=== PATIENT | female | born 1955 | race Caucasian/White ===

== ENCOUNTER 2020-06-03 16:19 | Observation (INO) | payer OTHER ==
--- NOTE | 2020-06-03 18:17 | ED ---
General Adult HPI <Homer Poole - Last Filed: 06/03/20 18:17> - General Source: patient, RN notes reviewed Mode of arrival: ambulatory Limitations: no limitations (11) - History of Present Illness -: days(s) Location: chest Radiation: non-radiation Consistency: constant Improves with: none Worsens with: movement (exertion) Associated Symptoms: malaise, shortness of breath, weakness, other (leg swelling, right > left) Treatments Prior to Arrival: none <Abdiel Marcos - Last Filed: 06/03/20 22:42> - General Stated complaint: SOB - History of Present Illness Initial comments: 64-year-old female presents to the emergency department with a chief complaint of shortness of breath. She just a positive for covid-19 05/21/20 and she ana nues to have shortness of breath. Reports exertional dyspnea. She did report some fevers or chills over a week ago which has since resolved. She does have history of A. fib that is controlled with medication but does not take blood thinners. States she is currently in A. fib (Homer Poole) - Related Data Home Medications Medication Instructions Recorded Confirmed Cholecalciferol (Vitamin D3) 125 mcg PO DAILY 06/03/20 06/03/20 [Vitamin D3 (5000 Iu)] Sotalol [Betapace] 80 mg PO BID 06/03/20 06/03/20 rOPINIRole HCL [Requip] 1 mg PO HS 06/03/20 06/03/20 Allergies Allergy/AdvReac Type Severity Reaction Status Date / Time No Known Allergies Allergy Verified 06/03/20 21:07 Review of Systems ROS Other: All systems not noted in ROS Statement are negative. <Homer Poole - Last Filed: 06/03/20 18:17> ROS Other: All systems not noted in ROS Statement are negative. <Abdiel Marcos - Last Filed: 06/03/20 22:42> ROS Statement: Those systems with pertinent positive or pertinent negative responses have been documented in the HPI. General Exam General appearance: alert, in no apparent distress Respiratory exam: Present: normal lung sounds bilaterally. Absent: respiratory distress, wheezes, rales, rhonchi, stridor Cardiovascular Exam: Present: regular rate, normal rhythm, normal heart sounds <VirgilioHomer - Last Filed: 06/03/20 18:17> General appearance: alert, in no apparent distress Head exam: Present: normocephalic, normal inspection ENT exam: Present: normal exam, mucous membranes moist Neck exam: Present: normal inspection, full ROM. Absent: tenderness, meningismus, lymphadenopathy, thyromegaly Cardiovascular Exam: Present: normal rhythm (irregular) GI/Abdominal exam: Present: soft, normal bowel sounds. Absent: distended, tenderness, guarding, rebound, rigid Extremities exam: Present: full ROM, normal capillary refill, pedal edema (bl leg swelling right > left, pt states usually has leg swelling with afib but right is greater for past 4 days), other (pedal pulses present b/l). Absent: tenderness, joint swelling, calf tenderness Neurological exam: Present: alert, oriented X3 Psychiatric exam: Present: normal affect, normal mood Skin exam: Present: warm, dry, intact, normal color. Absent: rash <Abdiel Marcos - Last Filed: 06/03/20 22:42> Course Vital Signs 06/03/20 06/03/20 18:12 22:39 Temperature 98.9 F 98.1 F Pulse Rate 80 70 Respiratory 20 18 Rate Blood Pressure 148/82 150/92 O2 Sat by Pulse 95 94 L Oximetry Medical Decision Making - Lab Data Result diagrams: 06/03/20 18:58 06/03/20 18:58 <Abdiel Marcos - Last Filed: 06/03/20 22:42> - Medical Decision Making Patient does not meet criteria from monoclonal antibodies, started 14 days ago, chest x-ray shows bilateral diffuse infiltrates more prominent in the left lower lobe. White count 4.9, d-dimer elevated at 1.80, troponin 0.012. Bilateral lower extremity edema, right Greater than left, negative Homans sign, pedal pulses present bilaterally. Patient has atrial fibrillation is not taking any anticoagulants at home. CT a shows bilateral pulmonary embolisms, acute right PE greater than the left, diffuse patchy course obesities consistent with over pneumonia. Ultrasound negative for DVT. Case discussed with Dr. Colindres, patient will be admitted. (Abdiel Marcos) - Lab Data Lab Results 06/03/20 06/03/20 06/03/20 Range/Units 18:58 18:58 18:58 WBC 4.9 (3.8-10.6) k/uL RBC 4.41 (3.80-5.40) m/uL Hgb 14.1 (11.4-16.0) gm/dL Hct 40.0 (34.0-46.0) % MCV 90.8 (80.0-100.0) fL MCH 31.9 (25.0-35.0) pg MCHC 35.1 (31.0-37.0) g/dL RDW 12.5 (11.5-15.5) % Plt Count 242 (150-450) k/uL MPV 7.4 Neutrophils % 72 % Lymphocytes % 16 % Monocytes % 8 % Eosinophils % 2 % Basophils % 1 % Neutrophils # 3.5 (1.3-7.7) k/uL Lymphocytes # 0.8 L (1.0-4.8) k/uL Monocytes # 0.4 (0-1.0) k/uL Eosinophils # 0.1 (0-0.7) k/uL Basophils # 0.1 (0-0.2) k/uL PT 10.0 (9.0-12.0) sec INR 0.9 (<1.2) APTT 23.9 (22.0-30.0) sec D-Dimer 1.80 H (<0.60) mg/L FEU Sodium 132 L (137-145) mmol/L Potassium 3.5 (3.5-5.1) mmol/L Chloride 92 L (98-107) mmol/L Carbon Dioxide 31 H (22-30) mmol/L Anion Gap 9 mmol/L BUN 9 (7-17) mg/dL Creatinine 0.71 (0.52-1.04) mg/dL Est GFR (CKD-EPI)AfAm >90 (>60 ml/min/1.73 sqM) Est GFR (CKD-EPI)NonAf >90 (>60 ml/min/1.73 sqM) Glucose 114 H (74-99) mg/dL Calcium 10.1 (8.4-10.2) mg/dL Total Bilirubin 0.9 (0.2-1.3) mg/dL AST 36 (14-36) U/L ALT 30 (4-34) U/L Alkaline Phosphatase 85 (38-126) U/L Troponin I (0.000-0.034) ng/mL Total Protein 6.5 (6.3-8.2) g/dL Albumin 3.7 (3.5-5.0) g/dL 06/03/20 Range/Units 18:58 WBC (3.8-10.6) k/uL RBC (3.80-5.40) m/uL Hgb (11.4-16.0) gm/dL Hct (34.0-46.0) % MCV (80.0-100.0) fL MCH (25.0-35.0) pg MCHC (31.0-37.0) g/dL RDW (11.5-15.5) % Plt Count (150-450) k/uL MPV Neutrophils % % Lymphocytes % % Monocytes % % Eosinophils % % Basophils % % Neutrophils # (1.3-7.7) k/uL Lymphocytes # (1.0-4.8) k/uL Monocytes # (0-1.0) k/uL Eosinophils # (0-0.7) k/uL Basophils # (0-0.2) k/uL PT (9.0-12.0) sec INR (<1.2) APTT (22.0-30.0) sec D-Dimer (<0.60) mg/L FEU Sodium (137-145) mmol/L Potassium (3.5-5.1) mmol/L Chloride (98-107) mmol/L Carbon Dioxide (22-30) mmol/L Anion Gap mmol/L BUN (7-17) mg/dL Creatinine (0.52-1.04) mg/dL Est GFR (CKD-EPI)AfAm (>60 ml/min/1.73 sqM) Est GFR (CKD-EPI)NonAf (>60 ml/min/1.73 sqM) Glucose (74-99) mg/dL Calcium (8.4-10.2) mg/dL Total Bilirubin (0.2-1.3) mg/dL AST (14-36) U/L ALT (4-34) U/L Alkaline Phosphatase (38-126) U/L Troponin I <0.012 (0.000-0.034) ng/mL Total Protein (6.3-8.2) g/dL Albumin (3.5-5.0) g/dL Disposition <Homer Poole - Last Filed: 06/03/20 18:17> Is patient prescribed a controlled substance at d/c from ED?: No Decision Date: 06/03/20 Decision Time: 22:30 <Abdiel Marcos - Last Filed: 06/03/20 22:42> Clinical Impression: Pulmonary embolism, COVID-19 Disposition: ADMITTED IP TO THIS [facility] Condition: Fair Referrals: Nonstaff,Physician [REFERRING] - 1-2 days
--- NOTE | 2020-06-03 18:44 | XR ---
EXAMINATION TYPE: XR chest 2V DATE OF EXAM: 06/03/2020 COMPARISON: NONE HISTORY: Shortness of breath and cough. TECHNIQUE: Frontal and lateral views of the chest are obtained. FINDINGS: There is diffuse patchy opacity in the right lung and additional moderate opacities in the knee to lower left lung. There is trace left pleural effusion. No pneumothorax seen. The cardiac si lhouette size is enlarged. CABG noted. The osseous structures are intact. IMPRESSION: Bilateral infiltrates.
[2020-06-03 19:11] LABS: Basophils # (A) 0.1 k/uL (0-0.2); Basophils % (A) 1 %; Eosinophils # (A) 0.1 k/uL (0-0.7); Eosinophils % (A) 2 %; HGB 14.1 gm/dL (11.4-16.0); Lymphocytes # (A) 0.8 k/uL (1.0-4.8); Lymphocytes % (A) 16 %; MCH 31.9 pg (25.0-35.0); MCHC 35.1 g/dL (31.0-37.0); MCV 90.8 fL (80.0-100.0); Mean Platelet Volume 7.4; Monocytes # (A) 0.4 k/uL (0-1.0); Monocytes % (A) 8 %; Neutrophils # (A) 3.5 k/uL (1.3-7.7); Neutrophils % (A) 72 %; Platelet Count 242 k/uL (150-450); RBC 4.41 m/uL (3.80-5.40); RDW 12.5 % (11.5-15.5); WBC 4.9 k/uL (3.8-10.6)
[2020-06-03 19:25] LABS: INR 0.9 (<1.2); Partial Thromboplastin Time 23.9 sec (22.0-30.0)
[2020-06-03 19:29] LABS: D-Dimer 1.8 mg/L FEU (<0.60)
[2020-06-03 19:30] LABS: ALT 30 U/L (4-34); AST 36 U/L (14-36); African American GFR (CKD) >90 (>60 ml/min/1.73 sqM); Albumin 3.7 g/dL (3.5-5.0); Alkaline Phosphatase 85 U/L (38-126); Anion Gap 9 mmol/L; Blood Urea Nitrogen 9 mg/dL (7-17); Calcium 10.1 mg/dL (8.4-10.2); Carbon Dioxide 31 mmol/L (22-30); Chloride 92 mmol/L (98-107); Glucose 114 mg/dL (74-99); Non-African American GFR(CKD) >90 (>60 ml/min/1.73 sqM); Potassium 3.5 mmol/L (3.5-5.1); Sodium 132 mmol/L (137-145); Total Bilirubin 0.9 mg/dL (0.2-1.3); Total Protein 6.5 g/dL (6.3-8.2)
--- NOTE | 2020-06-03 21:56 | CT ---
EXAMINATION TYPE: CT angio chest DATE OF EXAM: 06/03/2020 9:24 PM COMPARISON: Same day radiographs. HISTORY: Elevated d-dimer and shortness of breath. CT DLP: 351.5 mGycm Automated exposure control for dose reduction was used. CONTRAST: CTA scan of the thorax is performed with IV Contrast, patient injected with 100ml mL of Isovue 370, p ulmonary embolism protocol. MIP images are created and reviewed. FINDINGS: LUNGS: There is diffuse moderate to marked patchy ground glass opacities in the right lung. Additiona l less pronounced mild to moderate patchy groundglass opacities in the lingula and left lower lobe an d minimal involvement of the left upper lobe. No pleural effusion or pneumothorax. MEDIASTINUM: There is satisfactory enhancement of the pulmonary artery and its branches. There are mu ltiple filling defects in the right upper lobe pulmonary artery segmental branches. There are less pr onounced few filling defects in the left lower lobe pulmonary artery subsegmental branches. The bilat eral main pulmonary arteries are enlarged measuring up to 3.7 cm on the right and 3.3 cm on the left. There are scattered mildly enlarged mediastinal and hilar lymph nodes, may the reactive. Cardiomegal y without pericardial effusion is seen. OTHER: No additional significant abnormality is seen. IMPRESSION: ACUTE RIGHT GREATER THAN LEFT PE INVOLVING THE SEGMENTAL AND SUBSEGMENTAL BRANCHES ABOVE. RIGHT GREATER THAN LEFT DIFFUSE PATCHY COARSE OPACITIES, CONSISTENT WITH HISTORY OF COVID PNEUMONIA. INCIDENTAL ENLARGED PULMONARY ARTERIES, CAN BE SEEN WITH PULMONARY HYPERTENSION. Findings were reported to caring physician by me at time of dictation.
[2020-06-03] MEDS ORDERED: HEPARIN SODIUM 1,000 UN/ML (10ML VL) IV ONE (22:05)
[2020-06-03] MEDS ORDERED: ASPIRIN 81 MG PO STA (22:05)
[2020-06-03] MEDS ORDERED: MORPHINE SULFATE 4 MG/ML SYRINGE IV PRN (22:05)
[2020-06-03] MEDS ORDERED: HEPARIN SOD,PORK IN 0.45% NACL 25,000 UNIT in 0.45% NACL 1 250ML.BAG IV SCH (22:15)
--- NOTE | 2020-06-03 22:32 | US ---
EXAMINATION TYPE: US venous doppler duplex LE RT DATE OF EXAM: 06/03/2020 10:17 PM COMPARISON: NONE CLINICAL HISTORY: pain. Swelling x 1 week. No hx of DVT. Patient does not take blood thinners. SIDE PERFORMED: Right TECHNIQUE: The lower extremity deep venous system is examined utilizing real time linear array sonog cl with graded compression, doppler sonography and color-flow sonography. VESSELS IMAGED: Common Femoral Vein Deep Femoral Vein Greater Saphenous Vein * Femoral Vein Popliteal Vein Small Saphenous Vein * Proximal Calf Veins (* superficial vessels) Right Leg: No evidence of DVT in veins imaged at this time from prox calf veins to CFV/GSV. IMPRESSION: No sign of deep vein thrombosis in the right leg.
--- NOTE | 2020-06-04 02:23 | P.HPIM ---
History of Present Illness H&P Date: 06/03/20 Chief Complaint: shortness of breath 64-year-old female with A. fib not on blood thinners, hypertension Patient comes in due to persistent shortness of breath. She claims that she had positive contact with confirmed Covid patient during mass event at the [employer] which was limited in attendance that was around late in April she was confirmed diagnosed with Covid on May 21 initially she had symptoms of fevers chills body aches and some shortness of breath however her oxygen was never low for which she never went to the hospital her daughter Taking care of her and [facility] on her daily. Patient started feeling better no more fevers no more chills no more body aches however her shortness of breath has persisted, Patient decided to come into the hospital today due to persistent shortness of breath which is getting even more difficult to breathe with slight activity denies any chest pain she has also noticed some right leg swelling however she claims that her leg gets swollen due to her A. fib. She denies any recent traveling or hospitalization and she denies any recent traumas to her legs denies any history of blood clots denies any history of cancer. However he she has been less active since the diagnosis of Covid due to shortness of breath She notified EMS today upon arrival her oxygen was within normal limits however she decided to come to the hospital for evaluation In the ED she was found to have elevated d-dimer, positive for Covid CT angiogram of the chest confirmed PE and a background of patchy infiltrative disease Venous duplex ultrasound of the right lower leg showed no evidence of acute DVT Review of Systems Pertinent positives as noted in HPI. All other systems were reviewed and are negative Past Medical History Past Medical History: Atrial Fibrillation Additional Past Medical History / Comment(s): restless leg History of Any Multi-Drug Resistant Organisms: None Reported Additional Past Surgical History / Comment(s): mitral valve replace Past Psychological History: No Psychological Hx Reported Smoking Status: Never smoker Past Alcohol Use History: None Reported Past Drug Use History: None Reported - Past Family History Family Family Medical History: No Reported History Medications and Allergies Home Medications Medication Instructions Recorded Confirmed Type Cholecalciferol (Vitamin D3) 125 mcg PO DAILY 06/03/20 06/03/20 History [Vitamin D3 (5000 Iu)] Sotalol [Betapace] 80 mg PO BID 06/03/20 06/03/20 History rOPINIRole HCL [Requip] 1 mg PO HS 06/03/20 06/03/20 History Allergies Allergy/AdvReac Type Severity Reaction Status Date / Time No Known Allergies Allergy Verified 06/03/20 21:07 Physical Exam Vitals: Vital Signs Temp Pulse Resp BP Pulse Ox 06/03/20 22:39 98.1 F 70 18 150/92 94 L 06/03/20 18:12 98.9 F 80 20 148/82 95 Intake and Output 06/03/20 06/03/20 06/04/20 14:59 22:59 06:59 Other: Weight 90.718 kg Constitutional: No acute distress, conversant, pleasant Eyes: Anicteric sclerae, moist conjunctiva, Pupils equal round reactive to light ENMT: NC/AT Oropharynx clear, no erythema, or exudates Neck: Supple, FROM, no masses, or JVD No carotid bruits No thyromegaly Lungs: Clear to auscultation Clear to percussion Normal respiratory effort, no accessory muscle use Cardiovascular: Heart regular in rate and rhythm, No murmurs, gallops, or rubs No peripheral edema Abdominal: Soft Nontender, no guarding, rebound or rigidity Abdomen moving with respiration Normoactive bowel sounds No hepatomegaly, No splenomegaly No palpable mass No abdominal wall hernia noted Skin: Normal temperature, tone, texture, turgor No induration No subcutaneous nodules No rash, lesions No ulcers Extremities: No digital cyanosis No clubbing Pedal pulses intact and symmetrical Radial pulses intact and symmetrical No calf tenderness Psychiatric: Alert and oriented to person, place and time Appropriate affect fair judgement Neuro Muscles Strength 5/5 in all 4 extremities Sensation to light touch grossly present throughout Cranial nerves II-XII grossly intact No focal sensory deficits Lymphatics: no palpable cervical or supraclavicular , or inguinal lymph nodes Results CBC & Chem 7: 06/03/20 18:58 06/03/20 18:58 Labs: Abnormal Lab Results - Last 24 Hours (Table) 06/03/20 06/03/20 06/03/20 Range/Units 18:58 18:58 18:58 Lymphocytes # 0.8 L (1.0-4.8) k/uL D-Dimer 1.80 H (<0.60) mg/L FEU Sodium 132 L (137-145) mmol/L Chloride 92 L (98-107) mmol/L Carbon Dioxide 31 H (22-30) mmol/L Glucose 114 H (74-99) mg/dL Coronavirus (PCR) (Not Detectd) 06/03/20 Range/Units 22:40 Lymphocytes # (1.0-4.8) k/uL D-Dimer (<0.60) mg/L FEU Sodium (137-145) mmol/L Chloride (98-107) mmol/L Carbon Dioxide (22-30) mmol/L Glucose (74-99) mg/dL Coronavirus (PCR) Detected A (Not Detectd) Assessment and Plan Assessment: Acute pulmonary embolism Covid pneumonitis Chronic A. fib not on blood thinners Hypertension Plan Supplemental oxygen as needed currently oxygen saturation around 95% on room air Patient initiated on heparin for blood thinners Continue to monitor inflammatory markers continue to monitor oxygen requirement Resume home medications Supportive care Patient should be evaluated for chronic anticoagulation due to her A. fib which she qualifies based on history of stroke, female, hypertension and an no venous thromboembolism Echocardiogram CODE STATUS: Full code DVT prophylaxis: On heparin drip Discussed with: Patient, ER, Anticipated length of stay > than [address]: Home A total of 75 minutes was spent on the care of this complex patient more than 50% of the time was spent in counseling and care coordination.
[2020-06-04] MEDS: HEPARIN SODIUM 1,000 UN/ML (10ML VL) IV SCH ×2 (02:24→07:14)
[2020-06-04 05:05] LABS: Cholesterol 123 mg/dL (<200); HDL Cholesterol 27 mg/dL (40-60); LDL Cholesterol,Calculated 74 mg/dL (0-99); Triglycerides 110 mg/dL (<150)
[2020-06-04 05:24] LABS: ALT 25 U/L (4-34); AST 28 U/L (14-36); African American GFR (CKD) >90 (>60 ml/min/1.73 sqM); Albumin 3.1 g/dL (3.5-5.0); Albumin/Globulin Ratio 1.1; Alkaline Phosphatase 82 U/L (38-126); Anion Gap 5 mmol/L; Blood Urea Nitrogen 7 mg/dL (7-17); Calcium 9.6 mg/dL (8.4-10.2); Carbon Dioxide 30 mmol/L (22-30); Chloride 98 mmol/L (98-107); Globulin 2.7 g/dL; Glucose 90 mg/dL (74-99); LDH 787 U/L (313-618); Non-African American GFR(CKD) 90 (>60 ml/min/1.73 sqM); Sodium 133 mmol/L (137-145); Total Bilirubin 0.7 mg/dL (0.2-1.3); Total Protein 5.8 g/dL (6.3-8.2)
[2020-06-04 05:35] LABS: C Reactive Protein 50.8 mg/L (<10.0)
[2020-06-04] MEDS ORDERED: dexAMETHasone 2 MG TAB PO SCH (09:00)
[2020-06-04] MEDS ORDERED: ZINC SULFATE 220 MG CAP PO SCH (09:00)
[2020-06-04] MEDS ORDERED: SOTALOL 80 MG TAB PO SCH (09:00)
[2020-06-04] MEDS ORDERED: ASCORBIC ACID 500 MG TAB PO SCH (09:00)
[2020-06-04] MEDS ORDERED: ASPIRIN 325 MG TAB PO SCH (09:00)
[2020-06-04] MEDS ORDERED: CHOLECALCIFEROL 25 MCG (1000 IU) TABLET PO SCH (09:00)
[2020-06-04 09:54] LABS: HCT 36.4 % (37.2-46.3); HGB 11.9 g/dL (12.0-15.0); MCH 30.3 pg (27.0-32.0); MCHC 32.7 g/dL (32.0-37.0); MCV 92.6 fL (80.0-97.0); Mean Platelet Volume 10.8 fL (9.5-12.2); Platelet Count 240 X 10*3/uL (140-440); RBC 3.93 X 10*6/uL (4.10-5.20); RDW 12.6 % (11.5-14.5); WBC 4.74 X 10*3/uL (4.50-10.00)
[2020-06-04 10:25] LABS: Basophils # (A) 0.04 X 10*3/uL (0.00-0.10); Basophils % (A) 0.8 %; Eosinophils % (A) 2.1 %; Lymphocytes # (A) 1.27 X 10*3/uL (0.90-5.00); Lymphocytes % (A) 26.8 %; Monocytes # (A) 0.74 X 10*3/uL (0.20-1.00); Monocytes % (A) 15.6 %; Neutrophils # (A) 2.57 X 10*3/uL (1.80-7.70); Neutrophils % (A) 54.3 %
[2020-06-04] MEDS ORDERED: APIXABAN 5 MG TAB PO SCH (11:00)
[2020-06-04 11:07] VITALS: BP 124/82; PULSE 72; RESP 18; TEMP 98
--- NOTE | 2020-06-04 12:16 | P.GSCN ---
History of Present Illness Consult date: 06/04/20 Reason for Consult: Pulmonary embolism History of present illness: This is a 64-year-old pleasant female who presented to the emergency department for increased shortness of breath with difficulty breathing, and swelling in her right lower extremity. He states she had exposure to coated at [employer] and then 1 for testing and was found to be positive on 05/21/2020. She subsequently became symptomatic with fever, chills, body aches and some mild shortness of breath. She states 5-6 days ago she started having significant increase in shortness of breath and difficulty breathing with exertion. She states she does have a past medical history including atrial fibrillation, however is not on any anticoagulation. She also stated she noticed some swelling in her right lower extremity, however states that she often has swelling in that extremity related to her atrial fibrillation. She currently denies any chest pain, states she still has some shortness of breath, her pulse ox is 97% on room air. CT angiogram chest shows acute right greater than left PE involving the segmental and subsegmental branches. Right greater than left diffuse patchy coarse opacities, consistent with history of covert pneumonia, incidental enl arged pulmonary arteries, can be seen with pulmonary hypertension. Echocardiogram pending Ultrasound venous Doppler of right lower extremity negative for DVT Review of Systems A 14 point review of systems was completed all pertinent positives and negatives as stated in the HPI. Past Medical History Past Medical History: Atrial Fibrillation Additional Past Medical History / Comment(s): restless leg History of Any Multi-Drug Resistant Organisms: None Reported Additional Past Surgical History / Comment(s): mitral valve replace Past Psychological History: No Psychological Hx Reported Smoking Status: Never smoker Past Alcohol Use History: None Reported Past Drug Use History: None Reported - Past Family History Family Family Medical History: No Reported History Medications and Allergies Home Medications Medication Instructions Recorded Confirmed Type Cholecalciferol (Vitamin D3) 125 mcg PO DAILY 06/03/20 06/03/20 History [Vitamin D3 (5000 Iu)] Sotalol [Betapace] 80 mg PO BID 06/03/20 06/03/20 History rOPINIRole HCL [Requip] 1 mg PO HS 06/03/20 06/03/20 History Apixaban [Eliquis Starter Pack 0 mg PO DIRECTED 30 Days #1 pack 06/04/20 Rx (for VTE)] Allergies Allergy/AdvReac Type Severity Reaction Status Date / Time No Known Allergies Allergy Verified 06/03/20 21:07 Surgical - Exam Vital Signs Temp Pulse Resp BP Pulse Ox 98.9 F 80 20 148/82 95 06/03/20 18:12 06/03/20 18:12 06/03/20 18:12 06/03/20 18:12 06/03/20 18:12 General appearance: The patient is alert, oriented, in no acute distress. Obese. HET: Head is normocephalic and atraumatic. Pupils are equal and reactive. Oropharynx is clear without lesions. Neck: Supple without lymphadenopathy. Trachea midline. Heart: S1 S2. Regularly irregular rhythm. Lungs: Clear to auscultation bilaterally Abdomen: Soft, nontender, nondistended with bowel sounds. Extremities: Normal skin color and turgor. Palpable bilateral dorsalis pedis pulses. Right lower extremity with +1 edema. Neurological: No focal deficits. Strength and sensation are grossly intact. Results - Labs 06/04/20 04:02 06/04/20 04:02 Abnormal Lab Results - Last 24 Hours (Table) 06/03/20 06/03/20 06/03/20 Range/Units 18:58 18:58 18:58 Lymphocytes # 0.8 L (1.0-4.8) k/uL APTT (22.0-30.0) sec D-Dimer 1.80 H (<0.60) mg/L FEU Sodium 132 L (137-145) mmol/L Chloride 92 L (98-107) mmol/L Carbon Dioxide 31 H (22-30) mmol/L Glucose 114 H (74-99) mg/dL Lactate Dehydrogenase (313-618) U/L C-Reactive Protein (<10.0) mg/L Total Protein (6.3-8.2) g/dL Albumin (3.5-5.0) g/dL HDL Cholesterol (40-60) mg/dL Coronavirus (PCR) (Not Detectd) 06/03/20 06/04/20 06/04/20 Range/Units 22:40 04:02 04:02 Lymphocytes # (1.0-4.8) k/uL APTT 31.2 H (22.0-30.0) sec D-Dimer (<0.60) mg/L FEU Sodium 133 L (137-145) mmol/L Chloride (98-107) mmol/L Carbon Dioxide (22-30) mmol/L Glucose (74-99) mg/dL Lactate Dehydrogenase 787 H (313-618) U/L C-Reactive Protein 50.8 H (<10.0) mg/L Total Protein 5.8 L (6.3-8.2) g/dL Albumin 3.1 L (3.5-5.0) g/dL HDL Cholesterol 27 L (40-60) mg/dL Coronavirus (PCR) Detected A (Not Detectd) Diabetes panel 06/03/20 06/04/20 Range/Units 18:58 04:02 Sodium 132 L 133 L (137-145) mmol/L Potassium 3.5 4.0 (3.5-5.1) mmol/L Chloride 92 L 98 (98-107) mmol/L Carbon Dioxide 31 H 30 (22-30) mmol/L BUN 9 7 (7-17) mg/dL Creatinine 0.71 0.72 (0.52-1.04) mg/dL Glucose 114 H 90 (74-99) mg/dL Calcium 10.1 9.6 (8.4-10.2) mg/dL AST 36 28 (14-36) U/L ALT 30 25 (4-34) U/L Alkaline Phosphatase 85 82 (38-126) U/L Total Protein 6.5 5.8 L (6.3-8.2) g/dL Albumin 3.7 3.1 L (3.5-5.0) g/dL Triglycerides 110 (<150) mg/dL HDL Cholesterol 27 L (40-60) mg/dL Calcium panel 06/03/20 06/04/20 Range/Units 18:58 04:02 Calcium 10.1 9.6 (8.4-10.2) mg/dL Albumin 3.7 3.1 L (3.5-5.0) g/dL Pituitary panel 06/03/20 06/04/20 Range/Units 18:58 04:02 Sodium 132 L 133 L (137-145) mmol/L Potassium 3.5 4.0 (3.5-5.1) mmol/L Chloride 92 L 98 (98-107) mmol/L Carbon Dioxide 31 H 30 (22-30) mmol/L BUN 9 7 (7-17) mg/dL Creatinine 0.71 0.72 (0.52-1.04) mg/dL Glucose 114 H 90 (74-99) mg/dL Calcium 10.1 9.6 (8.4-10.2) mg/dL Adrenal panel 06/03/20 06/04/20 Range/Units 18:58 04:02 Sodium 132 L 133 L (137-145) mmol/L Potassium 3.5 4.0 (3.5-5.1) mmol/L Chloride 92 L 98 (98-107) mmol/L Carbon Dioxide 31 H 30 (22-30) mmol/L BUN 9 7 (7-17) mg/dL Creatinine 0.71 0.72 (0.52-1.04) mg/dL Glucose 114 H 90 (74-99) mg/dL Calcium 10.1 9.6 (8.4-10.2) mg/dL Total Bilirubin 0.9 0.7 (0.2-1.3) mg/dL AST 36 28 (14-36) U/L ALT 30 25 (4-34) U/L Alkaline Phosphatase 85 82 (38-126) U/L Total Protein 6.5 5.8 L (6.3-8.2) g/dL Albumin 3.7 3.1 L (3.5-5.0) g/dL - Imaging Comments: Ultrasound venous Doppler of right lower extremity negative for DVT CT scan - chest: report reviewed (Acute right greater than left PE involving the segmental and subsegmental branches. Right greater than left diffuse patchy coarse opacities, consistent with history: Pneumonia. Incidental enlarged pulmonary arteries, can be seen with pulmonary hypertension.), image reviewed Assessment and Plan Assessment: 1. Pulmonary embolism 2. History of atrial fibrillation 3. Obesity Plan: Agree with medical management with IV anticoagulation, recommend changing over to oral anticoagulation once coverage is verified. There is no indication for any vascular surgical intervention. Thank you for this consultation, we will sign off at this time. The impression and plan of care has been dictated as directed. Dr. Tapia I performed a history and examination of this patient, discussed the same with the dictator. I agree with the dictator's note ,documented as a scribe. Any additional findings or plans will be noted.
--- NOTE | 2020-06-04 13:00 | P.DS ---
Providers Date of admission: 06/03/20 22:05 Expected date of discharge: 06/04/20 Attending physician: Shekhar Hobbs MD Consults: 06/03/20 22:05 Consult Physician Urgent Consulting Provider: Sachin Álvarez Consult Reason/Comments: echo Do you want consulting provider notified?: Yes Primary care physician: Stated None Hospital Course: Discharge Diagnosis: Bilateral pulmonary embolism right greater than left COVID pneumonitis Atrial fibrillation Hypertension Hospital Course: Patient is a 64-year-old female with a history of A. fib not on blood, hypertension with recent diagnosis of colon on 05/21 who presented to the ER with continuing shortness of breath. In the ER her vital signs were stable. She did not require any supplemental oxygen. She underwent a CT PE protocol which showed right greater than left acute pulmonary embolism. She was seen by vascular surgery who agreed with medical management of the patient. She is seen by cardiology and was cleared for discharge. She underwent an echocardiogram which per verbal report was without significant abnormalities. She was given a dose of Eliquis. Right lower extremity venous Doppler without Right LE DVT. Arrangements were made for discharge. She will follow with her primary radiation officer Dr. Griffin and is making arrangements for a new PCP as Dr. Hazel stopped accepting her insurance in Mar 2020. She is aware no contact sports, horse back riding, high risk activities while on blood thinners. Patient seen and examined at bedside. No chest pain, no shortness of breath, No nuausea, no DELACRUZ, no light headedness, no dizziness. Vital signs reviewed and stable. General: non toxic, no distress, appears at stated age Derm: warm, dry Head: atraumatic, normocephalic, symmetric Eyes: EOMI, no lid lag, anicteric sclera Mouth: no lip lesion, mucus membranes moist Cardiovascular: S1S2 reg, no murmur, positive posterior tibial pulse bilateral, Lungs: CTA bilateral, no rhonchi, no rales , no accessory muscle use Abdominal: soft, nontender to palpation, no guarding, no appreciable organomegaly Ext: no gross muscle atrophy, no edema, no contractures Neuro: CN II-XI grossly intact, no focal neuro deficits Psych: Alert, oriented, appropriate affect A total of 37 minutes of time were spent preparing this complex discharge summar y . Patient Condition at Discharge: Fair Plan - Discharge Summary New Discharge Prescriptions: New Apixaban [Eliquis Starter Pack (for VTE)] 0 mg PO DIRECTED 30 Days #1 pack No Action Cholecalciferol (Vitamin D3) [Vitamin D3 (5000 Iu)] 125 mcg PO DAILY rOPINIRole HCL [Requip] 1 mg PO HS Sotalol [Betapace] 80 mg PO BID Discharge Medication List Cholecalciferol (Vitamin D3) [Vitamin D3 (5000 Iu)] 125 mcg PO DAILY 06/03/20 [History] Sotalol [Betapace] 80 mg PO BID 06/03/20 [History] rOPINIRole HCL [Requip] 1 mg PO HS 06/03/20 [History] Apixaban [Eliquis Starter Pack (for VTE)] 0 mg PO DIRECTED 30 Days #1 pack 06/04/20 [Rx] Follow up Appointment(s)/Referral(s): Nonstaff,Physician [REFERRING] - 1-2 days Activity/Diet/Wound Care/Special Instructions: Checkd.In copay is $0/month.
--- NOTE | 2020-06-04 13:00 | ECHOF ---
Referral Reason:PE MEASUREMENTS -------- HEIGHT: 160.0 cm WEIGHT: 90.7 kg BP: 128/86 IVSd: 1.4 cm (0.6 - 1.1) LVIDd: 3.8 cm (3.9 - 5.3) LVPWd: 1.6 cm (0.6 - 1.1) EDV(Teich): 63 ml IVSs: 1.8 cm LVIDs: 2.8 cm LVPWs: 1.9 cm %IVS Thck: 27 % ESV(Teich): 29 ml EF(Teich): 53 % %FS: 27 % SV(Teich): 33 ml RVIDd: 3.3 cm (< 3.3) IVC: 32.60 mm RA Diam: 4.9 cm LALs A4C: 6.6 cm LAAs A4C: 28.8 cm LAESV A-L A4C: 106 ml LAESV MOD A4C: 101 ml LALs A2C: 6.1 cm LAAs A2C: 27.4 cm LAESV A-L A2C: 105 ml LAESV MOD A2C: 98 ml LAESV(A-L): 111 ml LAESV Index (A-L): 56.98 ml/m Ao Diam: 2.3 cm (2.0 - 3.7) LA Diam: 4.4 cm (2.7 - 3.8) AV Cusp: 1.7 cm (1.5 - 2.6) MV PHT: 58 ms MVA By PHT: 3.8 cm MV Vmax: 2.64 m/s MV Vmean: 1.14 m/s MV maxP.90 mmHg MV meanP.10 mmHg MV VTI: 42.5 cm LVOT Vmax: 0.86 m/s LVOT maxP.93 mmHg AV Vmax: 1.75 m/s AV maxP.21 mmHg TR Vmax: 3.14 m/s TR maxP.52 mmHg RAP: 20.00 mmHg RVSP: 59.52 mmHg FINDINGS -------- Atrial fibrillation. This was a technically adequate study. The left ventricular size is normal. Left ventricular wall thickness is normal. Overall left vent ricular systolic function is low-normal with, an EF between 50 - 55 %. Left ventricular fillimg pre ssure cannot be estimated due to Atrial fibrillation. Septal wall motion is delayed and consistent with prior cardiac surgery. The right ventricle is mildly enlarged. LA is severely dilated >40 ml/m2 The right atrium is moderately enlarged. Interatrial and interventricular septum intact. The aortic valve is trileaflet and appears structurally normal. There is no evidence of aortic regu rgitation. There is no evidence of aortic stenosis. No mitral regurgitation. Normally functioning bioprosthetic mitral valve. Severe tricuspid regurgitation present. There is severe pulmonary hypertension. The right ventric ular systolic pressure, as measured by Doppler, is 59.52mmHg. There is no pulmonic regurgitation present. The aortic root size is normal. The inferior vena cava is dilated with poor inspiratory collapse which is consistent with estimated r ight atrial pressure of 20 mmHg. There is no pericardial effusion. CONCLUSIONS -------- 1. The left ventricular size is normal. 2. Left ventricular wall thickness is normal. 3. Overall left ventricular systolic function is low-normal with, an EF between 50 - 55 %. 4. Left ventricular fillimg pressure cannot be estimated due to Atrial fibrillation. 5. The right ventricle is mildly enlarged. 6. LA is severely dilated >40 ml/m2 7. The right atrium is moderately enlarged. 8. Normally functioning bioprosthetic mitral valve. 9. Severe tricuspid regurgitation present. 10. There is severe pulmonary hypertension. 11. The right ventricular systolic pressure, as measured by Doppler, is 59.52mmHg. 12. The inferior vena cava is dilated with poor inspiratory collapse which is consistent with estimat ed right atrial pressure of 20 mmHg. [employer] TECHNICIAN: Jessica Bellamy RDCS
--- NOTE | 2020-06-04 13:04 | P.CRDCN ---
History of Present Illness Consult date: 06/04/20 History of present illness: CHIEF COMPLAINT: Shortness of breath HISTORY OF PRESENT ILLNESS: This is a 64-year-old female with a past medical history significant for atrial fibrillation on long-term anticoagulation, hypertension, and mitral valve replacement. Patient presented to the hospital secondary to shortness of br eath. Patient was found to be positive for Covid 19. Patient was also found to have a pulmonary embolism. Patient was started on IV heparin. Patient is on room air with oxygen saturations greater than 92%. Blood pressure 124/82. Heart rate in the 70s. She is afebrile. Chest x-ray reveals bilateral infiltrates Chest CTA: Acute right greater than left pulmonary on lithium involving the segmental and subsegmental branches. Right greater than left diffuse patchy coarse opacities, consistent with Covid. Incidental enlarged pulmonary arteries which can be seen with pulmonary hypertension. Laboratory data: WBC 4.74. Hemoglobin 11.9. Platelet count 240. D-dimer 1.80. Sodium 133. Potassium 4.0. BUN 7. Creatinine 0.72. Troponin negative 3. Current home cardiac medications include sotalol 80 mg twice a day REVIEW OF SYSTEMS: Thorough review of systems not completed secondary to limited evaluation/examination and due to Covid19 PHYSICAL EXAM: Thorough physical exam not completed secondary to limited evaluation/examination and due to Covid19 ASSESSMENT: Covid 19 Chronic persistent atrial fibrillation, not on long-term anticoagulation Acute pulmonary embolism Hypertension History of mitral valve replacement PLAN: Echocardiogram completed today reveals ejection fraction 50-55% Resume home cardiac medications Discontinue IV heparin Begin Eliquis 10 mg twice a day No further inpatient workup from a cardiac stand point. Patient is to follow up outpatient. We will sign off. Please consult if needed. Nurse practitioner note has been reviewed by physician. Signing provider agrees with the documented findings, assessment, and plan of care. Past Medical History Past Medical History: Atrial Fibrillation Additional Past Medical History / Comment(s): restless leg History of Any Multi-Drug Resistant Organisms: None Reported Additional Past Surgical History / Comment(s): mitral valve replace Past Psychological History: No Psychological Hx Reported Smoking Status: Never smoker Past Alcohol Use History: None Reported Past Drug Use History: None Reported - Past Family History Family Family Medical History: No Reported History Medications and Allergies Home Medications Medication Instructions Recorded Confirmed Type Cholecalciferol (Vitamin D3) 125 mcg PO DAILY 06/03/20 06/03/20 History [Vitamin D3 (5000 Iu)] Sotalol [Betapace] 80 mg PO BID 06/03/20 06/03/20 History rOPINIRole HCL [Requip] 1 mg PO HS 06/03/20 06/03/20 History Apixaban [Eliquis Starter Pack 0 mg PO DIRECTED 30 Days #1 pack 06/04/20 Rx (for VTE)] dexAMETHasone [Hexadrol] 6 mg PO DAILY #30 tab 06/04/20 Rx Allergies Allergy/AdvReac Type Severity Reaction Status Date / Time No Known Allergies Allergy Verified 06/03/20 21:07 Physical Exam Vitals: Vital Signs Temp Pulse Resp BP Pulse Ox 06/04/20 11:00 98.0 F 72 18 124/82 97 06/04/20 06:44 97.4 F L 75 16 128/86 98 06/04/20 03:00 86 18 148/83 95 06/04/20 01:30 65 16 127/80 94 L 06/03/20 22:39 98.1 F 70 18 150/92 94 L 06/03/20 18:12 98.9 F 80 20 148/82 95 Intake and Output 06/03/20 06/04/20 06/04/20 22:59 06:59 14:59 Intake Total 95.797 Balance 95.797 Intake: Intake, IV Titration 95.797 Amount Heparin Sod,Pork in 0.45% 95.797 NaCl 25,000 unit In 0.45 % NaCl 1 250ml.bag @ 11. 0232 UNITS/KG/HR 10 mls/ hr IV .Q24H [facility] Rx#: [id number] Other: Weight 90.718 kg Results 06/04/20 04:02 06/04/20 04:02 Cardiac Enzymes 06/03/20 06/03/20 06/03/20 Range/Units 18:58 18:58 22:31 AST 36 (14-36) U/L Lactate Dehydrogenase (313-618) U/L Troponin I <0.012 <0.012 (0.000-0.034) ng/mL 06/04/20 06/04/20 Range/Units 01:09 04:02 AST 28 (14-36) U/L Lactate Dehydrogenase 787 H (313-618) U/L Troponin I <0.012 (0.000-0.034) ng/mL Coagulation 06/03/20 06/04/20 Range/Units 18:58 04:02 PT 10.0 (9.0-12.0) sec APTT 23.9 31.2 H (22.0-30.0) sec Lipids 06/04/20 Range/Units 04:02 Triglycerides 110 (<150) mg/dL Cholesterol 123 (<200) mg/dL HDL Cholesterol 27 L (40-60) mg/dL CBC 06/03/20 06/04/20 Range/Units 18:58 04:02 WBC 4.9 4.74 (3.8-10.6) k/uL RBC 4.41 3.93 L (3.80-5.40) m/uL Hgb 14.1 11.9 L (11.4-16.0) gm/dL Hct 40.0 36.4 L (34.0-46.0) % Plt Count 242 240 (150-450) k/uL Comprehensive Metabolic Panel 06/03/20 06/04/20 Range/Units 18:58 04:02 Sodium 132 L 133 L (137-145) mmol/L Potassium 3.5 4.0 (3.5-5.1) mmol/L Chloride 92 L 98 (98-107) mmol/L Carbon Dioxide 31 H 30 (22-30) mmol/L BUN 9 7 (7-17) mg/dL Creatinine 0.71 0.72 (0.52-1.04) mg/dL Glucose 114 H 90 (74-99) mg/dL Calcium 10.1 9.6 (8.4-10.2) mg/dL AST 36 28 (14-36) U/L ALT 30 25 (4-34) U/L Alkaline Phosphatase 85 82 (38-126) U/L Total Protein 6.5 5.8 L (6.3-8.2) g/dL Albumin 3.7 3.1 L (3.5-5.0) g/dL Current Medications Generic Name Dose Route Start Last Admin Trade Name Freq PRN Reason Stop Dose Admin Apixaban 10 mg 06/04/20 11:00 06/04/20 11:57 Apixaban 5 Mg Tab PO 06/10/20 10:48 10 mg BID RONEN Administration Ascorbic Acid 500 mg 06/04/20 09:00 06/04/20 10:10 Ascorbic Acid 500 Mg Tab PO 500 mg BID RONEN Administration Cholecalciferol 125 mcg 06/04/20 09:00 06/04/20 10:10 Cholecalciferol 25 Mcg (1000 Iu) Tablet PO 125 mcg DAILY RONEN Administration Dexamethasone 6 mg 06/04/20 09:00 06/04/20 10:09 Dexamethasone 2 Mg Tab PO 6 mg DAILY RONEN Administration Morphine Sulfate 4 mg 06/03/20 22:05 Morphine Sulfate 4 Mg/Ml Syringe IV Q4HR PRN Chest Pain Ropinirole HCl 1 mg 06/04/20 21:00 Ropinirole Hcl 1 Mg Tab PO [facility] Sotalol HCl 80 mg 06/04/20 09:00 06/04/20 10:37 Sotalol 80 Mg Tab PO 80 mg BID RONEN Administration Zinc Sulfate 220 mg 06/04/20 09:00 06/04/20 10:10 Zinc Sulfate 220 Mg Cap PO 220 mg DAILY RONEN Administration Intake and Output 06/03/20 06/04/20 06/04/20 22:59 06:59 14:59 Intake Total 95.797 Balance 95.797 Intake: Intake, IV Titration 95.797 Amount Heparin Sod,Pork in 0.45% 95.797 NaCl 25,000 unit In 0.45 % NaCl 1 250ml.bag @ 11. 0232 UNITS/KG/HR 10 mls/ hr IV .Q24H [facility] Rx#: [id number] Other: Weight 90.718 kg 06/04/20 04:02 06/04/20 04:02
[2020-06-04 13:20] LABS: Ferritin 301.2 ng/mL (10.0-291.0)
--- NOTE | 2020-06-04 22:38 | CONS ---
CONSULTATION PULMONARY/CRITICAL CARE CONSULTATION: DATE OF CONSULTATION: June 04, 2020. The patient was seen in the emergency room, room 16. The patient apparently came into the hospital on June 03 complaining of shortness of breath. The patient was evaluated in the emergency department. She apparently tested positive for COVID-19 on May 21, 2020. Subsequent to that, she continued to have shortness of breath, which was mostly exertional initially, but became shortness of breath at rest. She did report some fever and chills over the last week or so, and shortness of breath has certainly gotten much worse. For that reason, she came in to be evaluated. She also had leg swelling, right greater than left, although Dopplers in the emergency department were negative. She did have a CT angiogram of the chest on June 03, which was interpreted as showing acute right greater than left PE involving the segmental and subsegmental branches, and diffuse coarse patchy opacities consistent with a previous episode of Covid pneumonitis/pneumonia. Anyway, the patient was stable in the emergency department. She was on IV heparin. She was not receiving any IV fluids. She was not receiving any supplemental oxygen. The patient was a candidate in our opinion for Decadron, vitamin, and anticoagulation. PAST MEDICAL HISTORY: Positive for atrial fibrillation. SURGICAL HISTORY: Surgical history was positive for previous mitral valve replacement. SOCIAL HISTORY: Negative for tobacco use. She denies any alcohol use or illicit drug use. FAMILY HISTORY: Noncontributory. She also suffers apparently from restless legs syndrome. MEDICATIONS: Her medications at home included vitamin D3, Betapace, and Requip. ALLERGIES: She has no history of any allergies. REVIEW OF SYSTEMS: CONSTITUTIONAL: Slight fevers and chills. NEUROLOGIC: Negative. HEENT negative. CARDIOVASCULAR negative. PULMONARY: Shortness of breath, mostly on exertion. GI negative. negative. RHEUMATOLOGIC negative. IMMUNOLOGIC negative. ENDOCRINOLOGIC negative. DERMATOLOGIC negative. PHYSICAL EXAMINATION: VITAL SIGNS: Current vital signs are reviewed. Temperature is 98. Heart rate 72, respiratory rate 18, blood pressure 124/82, mean 96, room air saturation 97%. GENERAL: Appears in no acute distress. HEENT examination: Grossly unremarkable. NECK: Supple. Full range of motion. No adenopathy. Neck veins are flat. CARDIOVASCULAR: Examination reveals regular rhythm rate. S1, S2 normal. Heart rate 72 beats per minute. No murmur. LUNGS: Reveal mostly clear breath sounds. Maybe a few scattered crackles at the bases. ABDOMEN: Soft. Bowel sounds are heard. EXTREMITIES are intact. No cyanosis, clubbing, or edema. SKIN: Without rash. NEUROLOGIC: Examination is brief but nonfocal. LABS: Reviewed. White count 4.74, hemoglobin 11.9, hematocrit 36.4, platelet count 240,000. D-dimer is 1.8. Sodium 133, potassium 4, chloride 98, CO2 30, anion gap 5. BUN and creatinine were 7 and 0.72. Ferritin 301.2. C-reactive protein 50.8. LDH 787. Troponins were negative x3. Covid testing was positive. Chest x-ray, CT scan and Dopplers of the lower extremities were all reviewed. Medications reviewed. ASSESSMENT: 1. Bilateral pulmonary emboli. 2. History of atrial fibrillation. 3. Recent episode of COVID-19 pneumonitis, recovered. 4. No significant respiratory distress at this time. 5. Restless legs syndrome. 6. History of mitral valve replacement. PLAN: The patient is doing well. The patient apparently is going to be considered for possible discharge home. Discharge medications are reviewed. No additional recommendations are made. Prognosis is guarded. She will follow up with us in the office. She will need a followup CT scan down the road maybe 8-10 weeks or so. Additional recommendations and suggestions are forthcoming. MMODL / IJN: [id number] /
== END 2020-06-04 13:20 | disposition home or self-care (01) ==
LOC: EC 16:19 → INTOOBSV 22:05 → 4SSUR 22:05 → UNDODISIN 06-04 13:20
PROVIDERS: ADMIT Internal Medicine; ATTEND Internal Medicine
DX: U07.1 COVID-19 (principal); I26.99 Other pulmonary embolism without acute cor pulmonale; J12.82 Pneumonia due to coronavirus disease 2019; I48.19 Other persistent atrial fibrillation; G25.81 Restless legs syndrome; I10 Essential (primary) hypertension; I27.20 Pulmonary hypertension, unspecified; I07.1 Rheumatic tricuspid insufficiency; E66.9 Obesity, unspecified; Z68.35 Body mass index [BMI] 35.0-35.9, adult; Z79.899 Other long term (current) drug therapy; Z95.2 Presence of prosthetic heart valve; Z86.73 Personal history of transient ischemic attack (TIA), and cerebral infarction without residual deficits
CPT/HCPCS: 96365; 96366 ×2; 99285; 36415; 93005; 93306; 85379; 80061; 80053 ×2; 82728; 83615; 84484 ×2; 85025 ×2; 85610; 85730 ×2; 86140; 87635; 71046; 93971; 71275; G0378 ×2; J1644 ×3; J8540; Q9967; 96374; 96376

== ENCOUNTER → 2022-09-17 | Outpatient (CLI) | payer MEDICARE ==
[2022-09-18 04:43] LABS: HIV 2 AB Non-Reactive (Non-Reactive); HIV AB P24 Non-Reactive (Non-Reactive); HIV P24 AG Non-Reactive (Non-Reactive)
== END | disposition home or self-care (01) ==
LOC: LABWHC1 10:51
PROVIDERS: ATTEND Internal Medicine Infectious Disease
DX: Z77.21 Contact with and (suspected) exposure to potentially hazardous body fluids (principal)
CPT/HCPCS: 36415; 86803; 87390